=== PATIENT | male | born 1955 | race Caucasian/White ===

== ENCOUNTER 2021-10-14 12:15 | Inpatient (IN) | payer MEDICARE, OTHER ==
[~2021-10-14] VITALS: Ht 182.9 cm; Wt 102.2 kg
[2021-10-14 12:48] LABS: BASOPHILS ABSOLUTE AUTO 0.08 K/mm3 (0.00-0.23); BASOPHILS PERCENT AUTO 1 % (0-2); EOSINOPHILS ABSOLUTE AUTO 0.05 K/mm3 (0.00-0.68); EOSINOPHILS PERCENT AUTO 0 % (0-6); Hematocrit 49.5 % (37.0-53.0); Hemoglobin 16.8 g/dL (13.5-17.5); IMMATURE GRAN ABSOLUTE AUTO 0.08 K/mm3 (0.00-0.10); IMMATURE GRAN PERCENT AUTO 1 % (0-1); LYMPHOCYTES ABSOLUTE AUTO 2.26 K/mm3 (0.84-5.20); LYMPHOCYTES PERCENT AUTO 15 % (21-46); MONOCYTES ABSOLUTE AUTO 0.58 K/mm3 (0.16-1.47); MONOCYTES PERCENT AUTO 4 % (4-13); Mean Corpuscular HGB 31.6 pg (26.0-34.0); Mean Corpuscular HGB Conc 33.9 g/dL (31.5-36.5); Mean Corpuscular Volume 93 fL (80-100); Mean Platelet Volume 10.7 fL (9.1-12.4); NEUTROPHILS ABSOLUTE AUTO 11.68 K/mm3 (1.96-9.15); NEUTROPHILS PERCENT AUTO 80 % (41-73); Platelet Count 243 K/mm3 (150-400); RDW Coefficient Variation 12.8 % (11.7-14.2); RDW Standard Deviation 43.6 fL (35.1-46.3); Red Blood Cell Count 5.32 M/mm3 (4.30-5.90); White Blood Cell Count 14.73 K/mm3 (4.00-11.30)
[2021-10-14 13:08] LABS: Albumin, Blood 3.3 g/dL (3.4-5.0); Albumin/Globulin Ratio 1.1 (0.8-1.8); Bilirubin, Total 0.8 mg/dL (0.1-1.0); Bun/Creatinine Ratio 14.6 (12.0-20.0); Calcium, Blood 9.4 mg/dL (8.5-10.1); Creatinine, Blood 0.96 mg/dL (0.60-1.20); Potassium, Blood 3.9 mmol/L (3.5-5.5); Total Protein, Blood 6.3 g/dL (6.4-8.2)
[2021-10-14] MEDS ORDERED: GABA300 PO (15:14)
[2021-10-14] MEDS ORDERED: METF500 PO (15:15)
[2021-10-14 16:05] LABS: BASOPHILS ABSOLUTE AUTO 0.05 K/mm3 (0.00-0.23); BASOPHILS PERCENT AUTO 0 % (0-2); EOSINOPHILS PERCENT AUTO 0 % (0-6); Hematocrit 48.6 % (37.0-53.0); Hemoglobin 17.1 g/dL (13.5-17.5); IMMATURE GRAN ABSOLUTE AUTO 0.21 K/mm3 (0.00-0.10); IMMATURE GRAN PERCENT AUTO 1 % (0-1); LYMPHOCYTES ABSOLUTE AUTO 1.01 K/mm3 (0.84-5.20); LYMPHOCYTES PERCENT AUTO 5 % (21-46); MONOCYTES ABSOLUTE AUTO 1.79 K/mm3 (0.16-1.47); MONOCYTES PERCENT AUTO 8 % (4-13); Mean Corpuscular HGB Conc 35.2 g/dL (31.5-36.5); Mean Corpuscular Volume 91 fL (80-100); Mean Platelet Volume 10.1 fL (9.1-12.4); NEUTROPHILS ABSOLUTE AUTO 19.04 K/mm3 (1.96-9.15); NEUTROPHILS PERCENT AUTO 86 % (41-73); Platelet Count 214 K/mm3 (150-400); RDW Coefficient Variation 12.8 % (11.7-14.2); RDW Standard Deviation 42.9 fL (35.1-46.3); Red Blood Cell Count 5.34 M/mm3 (4.30-5.90)
[2021-10-14 18:26] LABS: Magnesium, Blood 1.9 mg/dL (1.6-2.4); Potassium, Blood 4.3 mmol/L (3.5-5.5)
--- NOTE | 2021-10-14 19:13 | NUR ---
SHIFT SUMMARY: pt to ICU post PCI and stent placement x 2 in circumflex. TR band deflated without rebleed. NEURO: pt A/O x 4, ORTEGA CARDIAC: sinus rhythm with one 12 run beat of Vtach. dopamine titrated off. lasix push given RESPIRATORY: pt on 2L NC upon arrival to ICU. He is currently on Airvo 45 L/min at 90% FiO2. GI/: voiding using urinal. PSYCH/SOCIAL: anxious due to chest pain and SOB.
--- NOTE | 2021-10-14 22:33 | NUR ---
ASSUMED CARE OF PT FROM ДМИТРИЙ @ 1900. AGGRASTAT RUNNING AT 18.4 MLS/HR. PT SLEEPING WITH NO FAMILY IN ROOM. TKO RUNNING. 2L NC AIRVO AT 45L/MIN FIO2 90%. TR BAND DEFLATED BEFORE THIS NURSE GOT REPORT. TR BAND REMOVED, AREA CLEANSED AND COVERED WITH TRANSPARENT DRESSING. URINAL AT BEDSIDE. VITALS WNL AT THIS TIME.
--- NOTE | 2021-10-15 05:26 | NUR ---
CALL TO DR. RUSSELL PT UP TO CHAIR IN ORDER TO CHANGE OUT DIRTY LINEN. PT TOLERATED TRANSFER ADEQUATELY; HOWEVER, UPON GETTING BACK TO BED PT BECAME VERY SOB AND ANXIOUS. PRECEDEX ORDERED, BUT PRESSURES ON THE LOWER SIDE. DR. RUSSELL ON UNIT AT THAT TIME AND ASKED FOR PO ATIVAN, WELL MUCINEX THAT PT WAS REQUESTING HE WAS CONTINUING TO HAVE COUGHING EPISODES. PT DENIED ANY CHEST PAIN, BUT C/O BEING NAUSEAS, WHICH HE WAS MEDICATED FOR PER ORDERS. NO ECG CHANGES NOTED. SHORTLY AFTER DR. RUSSELL HAD LEFT UNIT PT'S BP'S DROPPED TO MAPS 50'S. CALL OUT WITH UPDATES REGARDING I/O STATUS AND PT'S RESPIRATORY STATUS WITH ORDERS TO START LEVOPHED.
[2021-10-15 06:09] LABS: BASOPHILS ABSOLUTE AUTO 0.04 K/mm3 (0.00-0.23); BASOPHILS PERCENT AUTO 0 % (0-2); EOSINOPHILS PERCENT AUTO 0 % (0-6); Hematocrit 44.3 % (37.0-53.0); IMMATURE GRAN ABSOLUTE AUTO 0.13 K/mm3 (0.00-0.10); IMMATURE GRAN PERCENT AUTO 1 % (0-1); LYMPHOCYTES ABSOLUTE AUTO 1.26 K/mm3 (0.84-5.20); LYMPHOCYTES PERCENT AUTO 7 % (21-46); MONOCYTES ABSOLUTE AUTO 1.45 K/mm3 (0.16-1.47); MONOCYTES PERCENT AUTO 8 % (4-13); Mean Corpuscular HGB 31.4 pg (26.0-34.0); Mean Corpuscular HGB Conc 33.9 g/dL (31.5-36.5); Mean Corpuscular Volume 93 fL (80-100); Mean Platelet Volume 10.6 fL (9.1-12.4); NEUTROPHILS ABSOLUTE AUTO 16.02 K/mm3 (1.96-9.15); NEUTROPHILS PERCENT AUTO 85 % (41-73); Platelet Count 208 K/mm3 (150-400); RDW Coefficient Variation 13.2 % (11.7-14.2); RDW Standard Deviation 44.8 fL (35.1-46.3); Red Blood Cell Count 4.77 M/mm3 (4.30-5.90)
--- NOTE | 2021-10-15 06:24 | NUR ---
END OF SHIFT SUMMARY LEVOPHED INITIATED AT 2MCG/MIN; MAP'S INCREASED TO > 65MMHG. PT ALERT AND ORIENTED; ABLE TO MAKE NEEDS KNOWN. AGGRASTAT CONTINUES AT 18ML/HR. CENTRAL LINE DRESSING CHANGED TO RIGHT GROIN SITE. R RADIAL SITE REMAINS SOFT, NON-TENDER, NO OOZING, OR HEMATOMA NOTED. PT DENIES CHEST PAIN. DOES NOT TOLERATE LYING FLAT D/T SOB. AFTER MEDICATING WITH ATIVAN; PT APPEARS MORE RELAXED. WILL CONTINUE TO MONITOR UNTIL REPORT IS HANDED OFF TO ONCOMING RN.
[2021-10-15 06:36] LABS: Anion Gap 10 mmol/L (6-16); Blood Urea Nitrogen 27 mg/dL (8-24); Bun/Creatinine Ratio 19.3 (12.0-20.0); CHOL/HDL RATIO 3.5; CO2, Blood 22 mmol/L (21-32); Calcium, Blood 9.4 mg/dL (8.5-10.1); Chloride, Blood 105 mmol/L (98-108); Cholesterol 152 mg/dL (50-200); Glomerular Filtration Rate 55 (60-); Glucose, Blood 157 mg/dL (70-99); HDL Cholesterol 43 mg/dL (>39); LDL/HDL RATIO 1.8; Low Density Lipoprotein Chol 76 mg/dL (0-110); Potassium, Blood 4.1 mmol/L (3.5-5.5); Sodium, Blood 137 mmol/L (136-145); Triglycerides 166 mg/dL (30-160); Very Low Density Lipoprot Chol 33 mg/dL (6-32)
--- NOTE | 2021-10-15 07:30 | NUR ---
NOTIFIED DR. OBRIEN OF PT'S FEELING OF "GASPING FOR AIR" AND ANXIETY WHILE SLEEPING. STATED TO SWITCH PT TO PRASUGREL FROM BRILLINTA. PHARMACY STATED THEY ONLY CARRY BRILLINTA AND PLAVIX. DR. OBRIEN ALSO NOTIFIED PT IS ALSO ON LEVOPHED NOW.
--- NOTE | 2021-10-15 07:35 | NUR ---
TOOK OVER CARE OF PT AT 0700, PT ON 2 OF LEVO AND 35% AIRVO
--- NOTE | 2021-10-15 18:12 | NUR ---
SUMMARY NEURO; WNL (BASELINE NEURUPATHY) SKIN: WNL- NO DUSKY APPEARANCE TO SKIN OR NAILBEDS LUNGS: DIMINISHED BREATH SOUNDS. SHALLOW TACHPNEIC BREATHING. PT HAS BEEN ON AIRVO 55L 35%. PT EDUCATED ON INCENTIVE SPIROMETRY USE. SEE CXR. GI: NAUSEA THROUGHOUT DAY, ZOFRAN AND PHENERGAN GIVEN. ONE SMALL BOWEL MOVEMENT. HYPOACTIVE BOWEL SOUNDS : 20 F LEIVA PLACED DUE TO PT SPASMING AROUND 18. PT STILL LEAKING DUE TO BEARING DOWN WHEN THEY FEEL THE URGE TO URINATE. LEIVA HAD RESISTANCE AT LEVEL OF PROSTATE AND SO THE 20 F WAS LEFT IN DUE TO CONCERN FOR INCREASED IRRITATION. URINE IS PINK TINGED. CARDIAC: PT'S BP AND DIURETICS WERE HELD THIS MORNING DUE TO PT BEING ON PRESSORS. 500ML BOLUS GIVEN, THEN LEVO TURNED OFF, ONCE LEVO OFF PT'S HEARTBURN RESOLVED. PT WAS STARTED ON PRASUGREL DUE TO INSOMNIA SE OF BRILLINTA. PULSE WAS STRONG IN LUE, AND FAINT IN ALL OTHER EXTREMETIES. COLOR NORMAL THROUGHOUT. NO SIGNS OF BLEEDING OR HEMATOMA ON RT RADIAL ACCESS SITE. AGGROSTAT WAS STOPPED AT [address] OBRIEN, WILL REAVALUATE GOING BACK TO REGISTERED PHYSICAL THERAPIST ON SUNDAY ONCE PT HAS STABILIZED FURTHER.
--- NOTE | 2021-10-15 21:28 | NUR ---
ASSUMED CARE OF PT @ 1900 FROM LEELEE GARCIA. NS TKO RUNNING AT THIS TIME. NO FAMILY OR VISITORS AT THIS TIME. PT SLEEPING IN ROOM ON 55L 35%. LEIVA DRAINING TO GRAVITY WITH PINK TINGED URINE. BP TRENDING LOW AT THIS TIME 80'S/60'S. INCENTIVE SPIROMETER AT BEDSIDE. WILL CONTINUE TO MONITOR.
[2021-10-16 04:40] LABS: BASOPHILS ABSOLUTE AUTO 0.04 K/mm3 (0.00-0.23); BASOPHILS PERCENT AUTO 0 % (0-2); EOSINOPHILS PERCENT AUTO 0 % (0-6); Hematocrit 41.9 % (37.0-53.0); Hemoglobin 14.1 g/dL (13.5-17.5); IMMATURE GRAN PERCENT AUTO 1 % (0-1); LYMPHOCYTES ABSOLUTE AUTO 1.66 K/mm3 (0.84-5.20); LYMPHOCYTES PERCENT AUTO 10 % (21-46); MONOCYTES ABSOLUTE AUTO 1.39 K/mm3 (0.16-1.47); MONOCYTES PERCENT AUTO 9 % (4-13); Mean Corpuscular HGB 31.9 pg (26.0-34.0); Mean Corpuscular HGB Conc 33.7 g/dL (31.5-36.5); Mean Corpuscular Volume 95 fL (80-100); Mean Platelet Volume 10.7 fL (9.1-12.4); NEUTROPHILS ABSOLUTE AUTO 13.14 K/mm3 (1.96-9.15); NEUTROPHILS PERCENT AUTO 81 % (41-73); Platelet Count 165 K/mm3 (150-400); RDW Coefficient Variation 13.5 % (11.7-14.2); RDW Standard Deviation 46.7 fL (35.1-46.3); Red Blood Cell Count 4.42 M/mm3 (4.30-5.90); White Blood Cell Count 16.33 K/mm3 (4.00-11.30)
[2021-10-16 05:10] LABS: Bun/Creatinine Ratio 31.4 (12.0-20.0); Calcium, Blood 8.9 mg/dL (8.5-10.1); Creatinine, Blood 1.02 mg/dL (0.60-1.20); Free Thyroxine 1.11 ng/dL (0.70-1.60); Potassium, Blood 3.8 mmol/L (3.5-5.5); Triiodothyronine, Free 2.05 pg/mL (2.18-3.98)
--- NOTE | 2021-10-16 05:47 | NUR ---
END OF SHIFT SUMMARY PT A/O, FOLLOWS COMMANDS. NS TKO RUNNING @20 ML/HR. 1ST DEGREE AV BLOCK WITH PVC'S THROUGHOUT THE NIGHT. LUNGS SOUNDS CLEAR IN UPPER LOBES, DIMINISHED IN LOWER LOBES. CBG'S WNL NOT REQUIRING INSULIN THIS SHIFT. 2 FORMED STOOLS. PT BLADDER SCANNED WITH RESULTS OF >600 MLS. LEIVA CATH INSERTED PER ORDERS. 950 MLS DRAINED THIS SHIFT. URINE IS YELLOW WITHOUT PURULANT OR BLOOD TINGE PRESENT. CHEST TUNE DRAINAGE OF 70 ML THIS SHIFT.
--- NOTE | 2021-10-16 06:28 | NUR ---
END OF SHIFT SUMMARY A/O X4. BP 90'S/60'S THOUGHOUT SHIFT. MAP IN UPPER 60'S TO LOWER 70'S. BIPAP TOLERATED AFTER PRESEDEX INITIATED. BIPAP SET AT 14/7 @ 35%. PRESEDEX RUNNING AT 0.2 MCG/KG/HR WITH APPROPRIATE OUTCOME FOR BIPAP USE. NS TKO RUNNING @10 MLS/HR. LEIVA DRAINING TO GRAVITY. URINE IS BLOOD TINGED WITH SMALL BLOOD CLOTS APARENT. CENTRAL LINE FLUSHING WELL WITH NO BLOOD RETURN.
--- NOTE | 2021-10-16 07:08 | NUR ---
TOOK OVER CARE OF PT AT 0700. PT RESTING ON BIPAP 14/7 35%, PRECEDEX WAS AT 0.2
--- NOTE | 2021-10-16 17:30 | NUR ---
pt transferred from ICU. report recieved from JOSE Drake. Pt on tele, NSR. 2l o2 via nc. Denies needs or concerns. at bedside.
--- NOTE | 2021-10-16 18:00 | NUR ---
CALL TO DR STEWART TO REVIEW ATIVAN ORDERS TO SEE IF PO CAN BE GIVEN NOW INSTEAD OF IV. TO REVIEW ORDER.
[2021-10-17 04:38] LABS: BASOPHILS ABSOLUTE AUTO 0.05 K/mm3 (0.00-0.23); BASOPHILS PERCENT AUTO 0 % (0-2); EOSINOPHILS ABSOLUTE AUTO 0.01 K/mm3 (0.00-0.68); EOSINOPHILS PERCENT AUTO 0 % (0-6); Hematocrit 40.3 % (37.0-53.0); Hemoglobin 13.2 g/dL (13.5-17.5); IMMATURE GRAN ABSOLUTE AUTO 0.09 K/mm3 (0.00-0.10); IMMATURE GRAN PERCENT AUTO 1 % (0-1); LYMPHOCYTES ABSOLUTE AUTO 1.71 K/mm3 (0.84-5.20); LYMPHOCYTES PERCENT AUTO 13 % (21-46); MONOCYTES ABSOLUTE AUTO 1.19 K/mm3 (0.16-1.47); MONOCYTES PERCENT AUTO 9 % (4-13); Mean Corpuscular HGB 31.2 pg (26.0-34.0); Mean Corpuscular HGB Conc 32.8 g/dL (31.5-36.5); Mean Corpuscular Volume 95 fL (80-100); NEUTROPHILS ABSOLUTE AUTO 10.41 K/mm3 (1.96-9.15); NEUTROPHILS PERCENT AUTO 77 % (41-73); Platelet Count 167 K/mm3 (150-400); RDW Coefficient Variation 13.5 % (11.7-14.2); RDW Standard Deviation 47.5 fL (35.1-46.3); Red Blood Cell Count 4.23 M/mm3 (4.30-5.90); White Blood Cell Count 13.46 K/mm3 (4.00-11.30)
[2021-10-17 04:59] LABS: Bun/Creatinine Ratio 36.3 (12.0-20.0); Calcium, Blood 8.7 mg/dL (8.5-10.1); Creatinine, Blood 1.02 mg/dL (0.60-1.20); Potassium, Blood 3.4 mmol/L (3.5-5.5)
--- NOTE | 2021-10-17 06:53 | NUR ---
SHIFT SUMMARY PT ALERT AND ORIENTED X4. R RADIAL AND R GROIN SITE C/D/I. AFEBRILE. BP STABLE. HR SR/ST 80-100'S. ON 2L SATS OVE 93%. DENIES CP. 3-4/10 BACK PAIN, RELIEVED PER EMAR. NASAL CONGESTION RELIEVED WITH SPRAY. ABLE TO AMBULATE TO BATHROOM W/ SBA. IN BED RESTING WITH CALL ALARM AT SIDE, WILL CONTINUE TO MONITOR UNTIL REPORT GIVEN TO DAYSHIFT RN
--- NOTE | 2021-10-17 10:55 | NUR ---
AM NOTE: PATIENT ALERT AND ORIENTED X4. NEURO AT BASELINE, WITH SOME NEUROPATHY. UP SBA TO BATHROOM. ON 2-4L NASAL CANNULA SATING MID 90'S. SOB WITH MOVEMENT, TALKING, AND GETTING UP TO BATHROOM. LUNGS SOUNDING CLEAR AND DIM IN BASES. OCCASIONAL WET COUGH. SPUTUM SAMPLE NEEDING TO BE COLLECTED. TELE SHOWING SINUS RHYTHM WITH HR 90'S. DENIES CHEST PAIN/PRESSURE. VITAL SIGNS STABLE. S/P ANGIO WITH RIGHT RADIAL AND RIGHT GROIN SITES. BOTH SITE SOFT/NONTENDER AND WNL. TEGADERM DRESSINGS IN PLACE. DR. OBRIEN IN THIS AM. PLAN FOR ANGIO POST ECHO. ECHO BEING DONE AT THIS TIME. NPO. NORMAL SALINE INFUSING AT 100ML/HR. DENIES ABDOMINAL PAIN/NAUSEA. STATES HE HAS INTERMITTENT NAUSEA AND HAS NOT BEEN HUNGRY. PATIENT DID NOT EAT BREAKFAST THIS AM. TOOK PILLS WHOLE WITH WATER. AT BEDSIDE. EDUCATED ON PLAN FOR DAY. CALL LIGHT IN REACH. WILL CONTINUE TO MONITOR.
--- NOTE | 2021-10-17 16:59 | NUR ---
PT TO ICU ROOM 5 @ 1500. PT ARRIVES ON 6L NC WITH SATS MID 90%. PT TACHYPNEIC AND APPEARS ANXIOUS WITH RR>40. PT MEDICATED WITH ATIVAN PER EMAR WITH GOOD RESULT, SATS CURRENTLY 95% ON 3LNC, RR 10-12, NSR WITH HR MID 80'S. PREVIOUS RIGHT FEMORAL ACCESS SITE SOFT, NON TENDER, OPEN TO AIR. RIGHT RADIAL ACCESS SITE, 12 CC AIR ON ARRIVAL, TR BAND IN PLACE, PT REMINDED TO MINIMIZE MOVEMENTS TO RIGHT WRIST TO DECREASE RISK OF BLEEDING. RIGHT RADIAL SITE SOFT, NO OOZING, DISTAL PULSES/PALLOR WNL. PT'S AT BEDSIDE. PLAN FOR TRANSFER TO PCU TOMORROW PER DR. OBRIEN. NURSE NOTIFY, PER DR. OBRIEN IF PT BECOMES HYPOTENSIVE GIVE 500 ML BOLUS.
--- NOTE | 2021-10-17 18:31 | NUR ---
TR BAND REMOVED @1830. CLEAR DRESSING APPLIED. SITE SOFT/NON TENDER, DISTAL PULSES/PALLOR WNL. PT DENIES CHEST PAIN OR SHORTNESS OF BREATH. SATS 95% ON 2L NC. VSS.
--- NOTE | 2021-10-17 20:00 | NUR ---
ASSUMED CARE. AOX3, COOPERATIVE, TIRED AND ASK TO GET SOME SLEEP TONIGHT. LS DIM IN BASES, COUGH MOIST, LOOSE, NON-PRODUCTIVE. DYSPNEA AND TACHYPNEA WITH EXCERTION AND WHILE TALKING BUT STILL MAINTAINS SATS GREATER THAN 90%. LIKES TO STAY IN FOLWERS POSITION, OFFERED TO KEEP PILLOWS FOR FLOATING. SINUS ON THE MONITORING WITH RATE 80-90'S. NO CHEST PAIN OR DISCOMFORT. RIGHT FEMEROL SITE IS OPEN TO AIR WITH LITTLE BRUISING NO SIGNS OF ACTIVE BLEEDING. RIGHT RADIAL SITE WITH BOARD IN PLACE, TR BAND IS OFF AND SITE IS COVERED WITH TEGADERM, NO SIGNS OF ACTIVE BLEEDING. ASSISTED WITH URINAL, SKIN CARE PROVIDED TO GROIN DUE TO WETNESS. BP HOLDING BUT SOFT.BLOOD SUGAR NO COVERAGE INDICATED. WILL CONTINUE TO MONITOR. CALL LIGHT IS IN REACH.
[2021-10-18 03:20] LABS: BASOPHILS ABSOLUTE AUTO 0.05 K/mm3 (0.00-0.23); BASOPHILS PERCENT AUTO 0 % (0-2); EOSINOPHILS ABSOLUTE AUTO 0.03 K/mm3 (0.00-0.68); EOSINOPHILS PERCENT AUTO 0 % (0-6); Hematocrit 42.2 % (37.0-53.0); Hemoglobin 13.8 g/dL (13.5-17.5); IMMATURE GRAN ABSOLUTE AUTO 0.08 K/mm3 (0.00-0.10); IMMATURE GRAN PERCENT AUTO 1 % (0-1); LYMPHOCYTES ABSOLUTE AUTO 1.37 K/mm3 (0.84-5.20); LYMPHOCYTES PERCENT AUTO 12 % (21-46); MONOCYTES PERCENT AUTO 9 % (4-13); Mean Corpuscular HGB 31.3 pg (26.0-34.0); Mean Corpuscular HGB Conc 32.7 g/dL (31.5-36.5); Mean Corpuscular Volume 96 fL (80-100); Mean Platelet Volume 10.7 fL (9.1-12.4); NEUTROPHILS PERCENT AUTO 78 % (41-73); Platelet Count 191 K/mm3 (150-400); RDW Coefficient Variation 13.2 % (11.7-14.2); RDW Standard Deviation 47.4 fL (35.1-46.3); Red Blood Cell Count 4.41 M/mm3 (4.30-5.90); White Blood Cell Count 11.23 K/mm3 (4.00-11.30)
--- NOTE | 2021-10-18 03:22 | NUR ---
PATIENT WAS ABLE TO STAND UP AT SIDE OF BED WITH NO CHANGE IN BLOOD PRESSURE AND HR MAINTAINING IN THE 90'S. DENIED CHEST PAIN OR LIGHTHEADNESS. TACHYPNEA NOTED UP IN THE 30'S, SATS 91-92% ON 3 LITERS. HAD TO DISCONNECT FROM MONITOR FOR SHORT PERIOD TO DETANGLE LINES SO HE CAN USE THE BATHROOM. SAT UP IN CHAIR FOR 10-15 MINUTES. LINEN CHANGE TO BED LIFT SHIFT WAS CAUSING DISCOMFORT AND PAIN. MILD BLOODY NOSE NOTED AFTER HE TRIED TO BLOW HIS NOSE, DUE TO DRYNESS FROM O2. PLACED HUMIDIFER ON O2. SATS NOW IN THE HIGH 90'S, GAVE SOME [place] JELLY TO HELP MOISTEN NOSTRILS. FRESH WATER GIVEN. C/O FEELING ANXIOUS WELL. ATIVAN GIVEN.
[2021-10-18 03:41] LABS: Albumin/Globulin Ratio 0.8 (0.8-1.8); Bilirubin, Total 1.7 mg/dL (0.1-1.0); Bun/Creatinine Ratio 32.7 (12.0-20.0); Calcium, Blood 8.3 mg/dL (8.5-10.1); Creatinine, Blood 1.07 mg/dL (0.60-1.20); Globulin, Blood 3.9 g/dL (2.2-4.0); Potassium, Blood 3.4 mmol/L (3.5-5.5); Total Protein, Blood 6.9 g/dL (6.4-8.2)
--- NOTE | 2021-10-18 05:05 | NUR ---
SPOKE TO DR. TATE REGARDING POTASSIUM OF 3.4. STATES HE WILL ADD SOME REPLACEMENT.
--- NOTE | 2021-10-18 05:32 | NUR ---
SHIFT SUMMARY: AOX3, COOPERATIVE. INDEPENDENT WITH POSITIONING. USES CALL LIGHT APPROPRIATLY AND IS ABLE TO MAKE NEEDS KNOWN. LS DIM IN BASES, COUGH MOIST NON-PRODUCTIVE, 3L O2 NC TO KEEP SATS >90%. DYSPNEA AND TACHPNEA WITH EXCERTION AND WHEN TALKING. ORTHOPNEA. PLACED HUMIDIFIER TO O2 DUE TO NOSE BLEED. ANXIOUS AT TIMES, RECEIVED 1 DOSE OF ATIVAN WHICH HELPED. RESP RATE TENDS TO BE 24-30 ON AVERAGE. SINUS WITH RATE IN 80-90'S. EKG THIS AM SHOWED NO CHANGE. NO CHEST PAIN OR LIGHTHEADNESS, WAS ABLE TO GET UP TO BATHROOM WITH NO INCREASE IN RATE. EDEMA IMPROVED. INTAKE- 2323, OUTPUT 750 PLUS 1 UNMEASURED VOID. RIGHT FEMORAL SITE AND RIGHT RADIAL SITE WNL, IV BOARD STILL ON RIGHT WRIST. POTASSIUM 3.4, NOTIFIED, REPLACEMENT ORDERED. CALL LIGHT REMAINS IN REACH, WILL REPORT OFF.
--- NOTE | 2021-10-18 09:55 | NUR ---
AM ASSUMTION OF CARE PATIENT WAS IN BED RESTING THIS AM. HE HAS A TKO TO [facility] ARM IV NOW SL. LEFT WRIST IV SL, NO BLOOD RETURN FROM EITHER IV HOWEVER. PATIENT COMPLAINING OF EYE DISCOMFORT, SALINE FLUSHES WERE ADMIN. TO PT. PATIENT WAS ENCOURAGE TO GET TO CHAIR, STOOD WITHOUT DIFFICULTY. NOT EXCITED ABOUT MEAL, ORDERED A NEW MEAL. HE IS BLOWING HIS NOW, WITH BLOOD CLOTS AND THIS BLOOD COMING FROM IT. DC'D OXYGEN NC. HE IS TACHYPNIC 25-30 WITH ACTIVITY AND AT REST. SPOKE WITH DRS ABOUT HIS FLUID VOL. AND CONCERN FOR FLUID RESTRICTION. DIURETIC GIVEN THIS AM HE HAS VOIDED 650ML THUS FAR. NO ACUTE PAIN AT THIS TIME. WILL CONTINUE CARE ORDERED.
--- NOTE | 2021-10-18 13:15 | NUR ---
PT MOVING TO PCU PATIENT HAS BEEN ABLE TO WALK THE HALLS OF THE HOSPITAL WITH STAFF. HE IS UP IN THE CHAIR AND ATE LUNCH. HIS ASSISTED WITH HIS BATH. REPORT GIVEN TO JOSE Tate TO ASSUME CARE.
--- NOTE | 2021-10-18 13:30 | NUR ---
ASSUMPTION OF CARE: Report recieved from [facility] SIGNAL INSPECTOR. Patient arrived from ICU 05 via WC. He is alert and oriented. Denies CP or SOB at this time. HRR , SR in the 80s-90s. LS CTA, Biox 96% on RA. BT+. He has a right radial site with opsite dressing-CDI no bruising noted. He also has a right groin site with opsite dressing, CDI- no oozing noted. BT+. PPP. VSS. Patient denies other needs at this time, call light in reach.
--- NOTE | 2021-10-18 16:00 | NUR ---
Update: Assessment unchanged. Pt is sitting up in the chair visiting with his . He denies needs at this time. Call light in reach. WCTM.
--- NOTE | 2021-10-18 16:45 | NUR ---
Rhythm Change: This RN was called by the dental technician instructor. It appears the patient has converted into atrial fibrillation with RVR-rate in the low 100s. confirmed with EKG. Dr. Hobbs notified, he will be down to see the patient.
--- NOTE | 2021-10-18 17:30 | NUR ---
Dr. Hobbs came to see the patient, see new orders. VSS. Pt is asymptomatic, just a little anxious. Ativan given for anxiety. Patient denies other needs at this time. Call light in reach, at bedside.
--- NOTE | 2021-10-18 18:22 | NUR ---
Summary: Patient was admitted for a STEMI. He was transferred from ICU 5 today to PCU 5. He is alert and oriented, some anxiety noted at the end of the shift due to a conversion into a-fib. HR in SR to start, pt converted to A-Fib around 1630-pt is asymptomatic. LS CTA, Biox has been 96-98% on RA, Per MEDIA ACCOUNT EXECUTIVE patient was on a couple of liters of oxygen this AM, after blowing a large clot out of his nose he was able to breathe and oxygenate better. BT+. PPP. Right radial and groin sites stable with opsites on them. No other changes this shift-will report to oncoming RN.
--- NOTE | 2021-10-19 05:33 | NUR ---
SHIFT SUMMARY Assumed care of this pt at 1900. A/Ox4. Patient very anxious and expresses this and RR increases with these episodes up into low 30's. Nonpharm solutions allowed patient to sleep for 4 hours, but awakens with same anxiety. Medicated with PRN with good relief. BP stable. Afib on tele avg 90-105, up to 120's with walking to bathroom. Reports no CP/pressure or epigastric pain. Satting above 95% on RA. R radial opsite C/D/I, fem site AIDS NURSE and C/D/I. Will update jacoby RN.
[2021-10-19 06:15] LABS: BASOPHILS ABSOLUTE AUTO 0.04 K/mm3 (0.00-0.23); BASOPHILS PERCENT AUTO 0 % (0-2); EOSINOPHILS ABSOLUTE AUTO 0.05 K/mm3 (0.00-0.68); EOSINOPHILS PERCENT AUTO 1 % (0-6); Hematocrit 38.2 % (37.0-53.0); Hemoglobin 13.1 g/dL (13.5-17.5); IMMATURE GRAN ABSOLUTE AUTO 0.07 K/mm3 (0.00-0.10); IMMATURE GRAN PERCENT AUTO 1 % (0-1); LYMPHOCYTES ABSOLUTE AUTO 1.48 K/mm3 (0.84-5.20); LYMPHOCYTES PERCENT AUTO 15 % (21-46); MONOCYTES ABSOLUTE AUTO 0.92 K/mm3 (0.16-1.47); MONOCYTES PERCENT AUTO 9 % (4-13); Mean Corpuscular HGB 32.1 pg (26.0-34.0); Mean Corpuscular HGB Conc 34.3 g/dL (31.5-36.5); Mean Corpuscular Volume 94 fL (80-100); Mean Platelet Volume 10.8 fL (9.1-12.4); NEUTROPHILS ABSOLUTE AUTO 7.19 K/mm3 (1.96-9.15); NEUTROPHILS PERCENT AUTO 74 % (41-73); Platelet Count 195 K/mm3 (150-400); RDW Coefficient Variation 12.9 % (11.7-14.2); RDW Standard Deviation 44.9 fL (35.1-46.3); Red Blood Cell Count 4.08 M/mm3 (4.30-5.90); White Blood Cell Count 9.75 K/mm3 (4.00-11.30)
[2021-10-19 06:48] LABS: Bun/Creatinine Ratio 37.3 (12.0-20.0); Creatinine, Blood 0.83 mg/dL (0.60-1.20); Potassium, Blood 3.4 mmol/L (3.5-5.5)
--- NOTE | 2021-10-19 08:00 | NUR ---
INITIAL ASSESSMENT: Patient is resting with his eyes closed, resp e/u. He easily awakens with verbal stimuli. He seems to be groggy, dose of PO ativan given at 0430. No C/O pain. He states the Ativan did help him relax but he still feels like he cannot quiet his mind. He denies CP or SOB. HR irreg, A-Fib in the 90s. LS DIM with some coarseness noted. PT was able to clear lungs with a couple of coarse NPC. Biox 96% on RA. BT+, abd non-tender to light palpation. Pt has right radial site with opsite CDI, soft and ven-hwosot-rx brusing noted. Right groin site open to air. VSS. AM meds given with a sip of water. Patient ambluated to the BR IND. K+ 3.4 this am-po dose of potassium ordered. Patient requestes he gets more time to rest this morning as he didn't sleep well last night. Call light in reach. TM.
--- NOTE | 2021-10-19 10:46 | NUR ---
Update: Patient converted to NSR at 0939. Cardiology notified. Plans for possible DC this afternoon after patient has walked in the hallway. cardiology also wants to assess how patients blood pressure does with changes in medications.
[2021-10-19] MEDS ORDERED: ELIQUIS5 M2 PO (11:03)
[2021-10-19] MEDS ORDERED: ATOR80 PO (11:03)
[2021-10-19] MEDS ORDERED: JARDIANCE25 MG PO (11:04)
[2021-10-19] MEDS ORDERED: FURO40 PO (11:05)
[2021-10-19] MEDS ORDERED: Lisinopril2.5 MG PO (11:05)
[2021-10-19] MEDS ORDERED: METO50ER PO (11:12)
[2021-10-19] MEDS ORDERED: Nicoderm Cq1 EAC1 TOP (11:20)
[2021-10-19] MEDS ORDERED: NITR.4SL SL (11:21)
[2021-10-19] MEDS ORDERED: OMEP20ER PO (11:30)
[2021-10-19] MEDS ORDERED: EFFIENT10 MG PO (11:32)
[2021-10-19] MEDS ORDERED: Aldactone50 MG PO (11:33)
[2021-10-19] MEDS ORDERED: Flomax0.4 MG PO (11:34)
--- NOTE | 2021-10-19 13:45 | NUR ---
Discharge: Dr. Hobbs rounded on the patient again and cleared him for discharge. Pt and verbalize understanding of DC Instructions. Scripts faxed to [facility] on [facility]. PT was sent with a prescription cupon for eliquis. Pt was able to ambulate out of the hospital to home with his .
== END 2021-10-19 14:08 | disposition home or self-care (01) | DRG 246 ==
LOC: ER 12:15 → ICUW 12:23 → PCU 10-16 17:16 → ICUE 10-17 15:33 → PCU 10-18 13:31
PROVIDERS: Emergency Medicine; Family Medicine; Internal Medicine Critical Care Medicine; ADMIT Internal Medicine Cardiovascular Disease
PROC: 027035Z Dilation of Coronary Artery, One Artery with Two Drug-eluting Intraluminal Devices, Percutaneous Approach (ICD-10-PCS; principal; 2021-10-14)
PROC: 4A023N7 Measurement of Cardiac Sampling and Pressure, Left Heart, Percutaneous Approach (ICD-10-PCS; 2021-10-14)
PROC: B2111ZZ Fluoroscopy of Multiple Coronary Arteries using Low Osmolar Contrast (ICD-10-PCS; 2021-10-14)
PROC: 02C03ZZ Extirpation of Matter from Coronary Artery, One Artery, Percutaneous Approach (ICD-10-PCS; 2021-10-14)
PROC: 4A043B0 Measurement of Venous Pressure, Central, Percutaneous Approach (ICD-10-PCS; 2021-10-14)
PROC: 3E033PZ Introduction of Platelet Inhibitor into Peripheral Vein, Percutaneous Approach (ICD-10-PCS; 2021-10-14)
PROC: 5A0945A Assistance with Respiratory Ventilation, 24-96 Consecutive Hours, High Flow/Velocity Cannula (ICD-10-PCS; 2021-10-14)
PROC: 3E03329 Introduction of Other Anti-infective into Peripheral Vein, Percutaneous Approach (ICD-10-PCS; 2021-10-14)
PROC: 3E033XZ Introduction of Vasopressor into Peripheral Vein, Percutaneous Approach (ICD-10-PCS; 2021-10-15)
PROC: 5A09357 Assistance with Respiratory Ventilation, Less than 24 Consecutive Hours, Continuous Positive Airway Pressure (ICD-10-PCS; 2021-10-16)
PROC: 027035Z Dilation of Coronary Artery, One Artery with Two Drug-eluting Intraluminal Devices, Percutaneous Approach (ICD-10-PCS; 2021-10-17)
PROC: 4A023N7 Measurement of Cardiac Sampling and Pressure, Left Heart, Percutaneous Approach (ICD-10-PCS; 2021-10-17)
PROC: B2111ZZ Fluoroscopy of Multiple Coronary Arteries using Low Osmolar Contrast (ICD-10-PCS; 2021-10-17)
DX: I21.29 ST elevation (STEMI) myocardial infarction involving other sites (principal); I50.41 Acute combined systolic (congestive) and diastolic (congestive) heart failure; R57.0 Cardiogenic shock; J69.0 Pneumonitis due to inhalation of food and vomit; J96.01 Acute respiratory failure with hypoxia; N17.9 Acute kidney failure, unspecified; I25.10 Atherosclerotic heart disease of native coronary artery without angina pectoris; E11.42 Type 2 diabetes mellitus with diabetic polyneuropathy; I48.0 Paroxysmal atrial fibrillation; K21.9 Gastro-esophageal reflux disease without esophagitis; Z98.890 Other specified postprocedural states; Z79.84 Long term (current) use of oral hypoglycemic drugs; Z79.899 Other long term (current) drug therapy; E87.6 Hypokalemia; F41.9 Anxiety disorder, unspecified; M25.511 Pain in right shoulder
CPT/HCPCS: 36415; 51702; 71045; 71046; 76937; 80048; 80053; 80061; 82947; 83735; 83880; 84132; 84145; 84439; 84443; 84481; 84484; 85025; 85049; 85347; 85730; 87070; 87205; 92920; 92973; 93005; 93010; 93306; 93458; 94660; 94664; 96374; 99152; 99153; 99285-25; A9270; C1725; C1751; C1757; C1769; C1874; C1887; C1894; C8929; C9600; C9606; J0295; J0461; J1265; J1644; J1815; J1940; J2060; J2250; J2370; J2405; J2550; J2765; J3010; J3246; J7030; J7040; J7050; J7060; Q9957; Q9967